=== PATIENT | female | born 2000 | race Caucasian/White ===

== ENCOUNTER 2022-03-01 22:02 | Emergency (ER) | payer OTHER ==
[2022-03-01 23:10] LABS: BASOPHILS % (AUTO) 0.4 %; EOSINOPHILS # (AUTO) 0.1 10^3/uL (0.0-0.7); EOSINOPHILS % (AUTO) 0.7 %; HCT - HEMATOCRIT 34.4 % (37.0-47.0); LYMPHOCYTES # (AUTO) 2.4 10^3/uL (1.5-3.5); LYMPHOCYTES % (AUTO) 28.9 %; MEAN CORPUSCULAR HEMOGLOBIN 32.5 pg (27.0-31.0); MEAN CORPUSCULAR HGB CONC 34.9 g/dL (32.0-36.0); MEAN CORPUSCULAR VOLUME 93.2 fL (81.0-99.0); MEAN PLATELET VOLUME 9.5 fL (7.9-10.8); MONOCYTES # (AUTO) 0.8 10^3/uL (0.0-1.0); MONOCYTES % (AUTO) 8.9 %; NEUTROPHILS # (AUTO) 5.1 10^3/uL (1.5-6.6); NEUTROPHILS % (AUTO) 60.9 %; PLT - PLATELET COUNT 308 10^3/uL (130-450); RED BLOOD COUNT 3.69 10^6/uL (4.20-5.40); RED CELL DISTRIBUTION WIDTH 12.3 % (12.0-15.0); WHITE BLOOD COUNT 8.4 x10^3/uL (4.8-10.8)
[2022-03-01 23:14] LABS: BILIRUBIN,URINE NEGATIVE (NEGATIVE); GLUCOSE, URINE (UA) NEGATIVE (NEGATIVE); KETONES,URINE (UA) NEGATIVE (NEGATIVE); LEUKOCYTE ESTERASE, URINE NEGATIVE (NEGATIVE); NITRITE,URINE POSITIVE (NEGATIVE); OCCULT BLOOD,URINE NEGATIVE (NEGATIVE); PH,URINE 6.5 PH (5.0-7.5); PROTEIN,URINE NEGATIVE (NEGATIVE); UROBILINOGEN,URINE 0.2 (NORMAL) E.U./dL (NORMAL)
[2022-03-01 23:16] LABS: CLARITY,URINE HAZY (CLEAR); HCG UR QUAL NEGATIVE
[2022-03-01] MEDS ORDERED: ONDANSETRON 4 MG/2 ML VIAL IVP STA (23:17)
[2022-03-01] MEDS ORDERED: MORPHINE 2 MG/ML CARPUJECT IVP STA (23:17)
[2022-03-01 23:19] LABS: ALBUMIN 4.4 g/dL (3.2-5.5); ALBUMIN/GLOBULIN RATIO 1.4 (1.0-2.2); BILIRUBIN,TOTAL 0.4 mg/dL (0.2-1.0); CALCIUM 9.7 mg/dL (8.5-10.3); CREATININE 0.9 mg/dL (0.4-1.0); POTASSIUM 3.6 mmol/L (3.5-5.0); TOTAL PROTEIN 7.5 g/dL (6.7-8.2)
[2022-03-01 23:22] LABS: RBC,URINE 0-5 /HPF (0-5); SQUAMOUS EPITHELIAL CELL,UR FEW Squamous (<= Few)
[2022-03-01 23:23] LABS: BACTERIA,URINE Many /HPF (None Seen)
[2022-03-02] MEDS ORDERED: cefTRIAXone 1 GM in SODIUM CHLORIDE 0.9% MINIBAG 100 ML IV STA (00:24)
[2022-03-02] MEDS ORDERED: cefTRIAXone 1 GM VIAL ONE (00:47)
--- NOTE | 2022-03-02 03:52 | ED Physician Documentation ---
PD HPI FEMALE - Stated complaint Stated Complaint: ABD PX - Chief complaint Chief Complaint: Abd Pain - Additional information Additional information: Patient is 22-year-old female presenting to the emergency department with pelvic pain. Reports vigorous intercourse earlier this evening. Since that time has had low pelvic pain. Reports similar episodes in the past but never this severe. Reports in the past she has been diagnosed with colitis after coming to the emergency department for evaluation. Denies any diagnosis of vaginismus. Reports that this does not occur with all vaginal intercourse or vaginal penetration. Denies any bleeding or discharge from the vagina. Does report has been feeling somewhat fatigued x1 day but denies any other specific symptoms. Review of Systems Ten Systems: 10 systems reviewed and negative Constitutional: denies: Fever Eyes: denies: Loss of vision Ears: denies: Loss of hearing Nose: denies: Rhinorrhea / runny nose Throat: denies: Dental pain / toothache Cardiac: denies: Chest pain / pressure GI: denies: Abdominal Pain : denies: Dysuria Skin: denies: Rash Musculoskeletal: denies: Neck pain PD PAST MEDICAL HISTORY - Past Medical History Past Medical History: Yes GI: Other Other Past Medical History: Colitis - Past Surgical History Past Surgical History: No - Present Medications Home Medications: Ambulatory Orders Medication Instructions Recorded Confirmed Dicyclomine [Bentyl] 20 mg PO QID #30 mg pe 03/02/22 cephALEXin [Keflex] 500 mg PO Q6H #28 mg pe 03/02/22 polyethylene glycoL 3350 [Miralax] 17 gm PO DAILY #238 gm 03/02/22 - Allergies Allergies/Adverse Reactions: Allergies Allergy/AdvReac Type Severity Reaction Status Date / Time No Known Drug Allergies Allergy Verified 03/01/22 22:11 - Social History Does the pt smoke?: No Smoking Status: Never smoker Does the pt drink ETOH?: Yes Does the pt have substance abuse?: No - Immunizations Immunizations are current?: Yes - POLST Patient has POLST: No PD ED PE NORMAL - Vitals Vital signs reviewed: Yes - General General: Alert and oriented X 3 - HEENT HEENT: Atraumatic - Neck Neck: Supple, no meningeal sign - Cardiac Cardiac: RRR - Respiratory Respiratory: No respiratory distress - Abdomen Abdomen: Normal bowel sounds, Soft, Non tender, No organomegaly - Female Female : Deferred - Rectal Rectal: Deferred - Derm Derm: Normal color - Extremities Extremities: No deformity Results - Vitals Vitals: Vital Signs - 24 hr 03/01/22 03/01/22 03/02/22 22:09 23:08 00:00 Temperature 36.6 C Heart Rate 98 81 80 Respiratory 17 16 Rate Blood Pressure 113/59 L 102/55 L O2 Saturation 98 98 99 03/02/22 03/02/22 01:00 02:30 Temperature Heart Rate 86 84 Respiratory 16 16 Rate Blood Pressure 98/54 L 98/59 L O2 Saturation 98 99 Oxygen O2 Source Room air - Labs Labs: Laboratory Tests 03/01/22 03/01/22 03/01/22 23:00 23:03 23:03 WBC 8.4 RBC 3.69 L Hgb 12.0 Hct 34.4 L MCV 93.2 MCH 32.5 H MCHC 34.9 RDW 12.3 Plt Count 308 MPV 9.5 Neut # (Auto) 5.1 Lymph # (Auto) 2.4 Delta # (Auto) 0.8 Eos # (Auto) 0.1 Baso # (Auto) 0.0 Absolute Nucleated RBC 0.00 Nucleated RBC % 0.0 Sodium 136 Potassium 3.6 Chloride 105 Carbon Dioxide 23 Anion Gap 8.0 BUN 16 Creatinine 0.9 Estimated GFR (MDRD) 79 L Glucose 108 H Calcium 9.7 Total Bilirubin 0.4 AST 16 ALT 17 Alkaline Phosphatase 56 Total Protein 7.5 Albumin 4.4 Globulin 3.1 Albumin/Globulin Ratio 1.4 Lipase 27 Urine Color YELLOW Urine Clarity HAZY Urine pH 6.5 Ur Specific [place] 1.020 Urine Protein NEGATIVE Urine Glucose (UA) NEGATIVE Urine Ketones NEGATIVE Urine Occult Blood NEGATIVE Urine Nitrite POSITIVE H Urine Bilirubin NEGATIVE Urine Urobilinogen 0.2 (NORMAL) Ur Leukocyte Esterase NEGATIVE Urine RBC 0-5 Urine WBC 4-5 Ur Squamous Epith Cells FEW Squamous Urine Bacteria Many H Ur Microscopic Review INDICATED Urine Culture Comments INDICATED Urine HCG, Qual NEGATIVE PD MEDICAL DECISION MAKING - ED course Complexity details: reviewed results, d/w patient ED course: Patient is 22-year-old female presenting to the emergency department with pelvic pain after intercourse earlier this evening. Denied any bleeding that would be of eminent concern for trauma to the intravaginal vault. Reported had similar symptoms to this in the past and in the past have been diagnosed with an atypical colitis. Afebrile, hemodynamically stable. Some suprapubic tenderness to palpation. Urine analysis positive for nitrates and +4 bacteria. Was given a gram Rocephin. Additionally given dose of morphine in the emergency department. CT of the abdomen pelvis with multiple nonspecific findings including some adenopathy possibly representing mesenteric adenitis as well as moderate fecalization throughout the distal part of the large bowel and a single identified dominant follicle. Overall however patient's lab work, imaging and presentation are relatively benign. I will discharge on a bowel regimen as well as a short course of an oral antibiotic for possible urinary tract infection. I encouraged abstinence from sexual activity until symptoms completely christina and careful follow-up with primary care. Departure - Departure Disposition: Home, Self Care Clinical Impression: Pelvic pain in female, Lower urinary tract infection, Constipation, Abdominal lymphadenopathy Instructions: ED Abdominal Pain Female Non-Specific Abdominal Pain Prescriptions: Dicyclomine [Bentyl] 20 mg PO QID #30 mg pe cephALEXin [Keflex] 500 mg PO Q6H #28 mg pe polyethylene glycoL 3350 [Miralax] 17 gm PO DAILY #238 gm Comments: Thank you for allowing us to care for you today At [facility]. In the emergency department this evening you were evaluated for any possible life-threatening medical emergency. You were found to have some indications of urinary tract infection and the CT of your abdomen and pelvis showed some swollen lymph nodes possibly representing an early, likely viral infection however there was no significant injury identified to the pelvic structures. I will be discharging you with a short course of some medication you can take for pain control as well as a course of oral antibiotic, and some medications to help as a bowel regimen. Please take these as directed. I recommend avoiding intercourse for the next 2 to 3 weeks. I also like you to follow-up with your primary care doctor soon as possible for medical recheck. If it anytime you have any new or worsening symptoms please not hesitate to return to the emergency department.
[2022-03-02] MEDS ORDERED: oxyCODONE/ACET 5/325 Prepack 4 PO STA (04:18)
[2022-03-02 04:59] VITALS: BP 104/63
--- NOTE | 2022-03-02 07:31 | CT Report ---
PROCEDURE: Abdomen/Pelvis W INDICATIONS: abd pain CONTRAST: IV CONTRAST: Optiray 320 ml: 100 PO CONTRAST: *NO PO CONTRAST TECHNIQUE: After the administration of intravenous contrast, 5 mm thick sections acquired from the diaphragms to the symphysis. 5 mm thick coronal and sagittal reformats were acquired. For radiation dose reducti on, the following was used: automated exposure control, adjustment of mA and/or kV according to izabella ent size. COMPARISON: None. FINDINGS: Image quality: Excellent. ABDOMEN: Lung bases: Lung bases are clear. Heart size is normal. Solid organs: Liver and spleen are normal in size and enhancement. Gallbladder is unremarkable Kwasi iary system is non dilated. Pancreas enhances normally. No adrenal nodules. Kidneys demonstrate no rmal size and enhancement, without hydronephrosis. Peritoneum and bowel: Bowel loops demonstrate normal wall thickness and caliber. No free fluid or a ir. Normal appendix. Large amount of right colonic fecal debris and equalization of distal ileal cont ents. Nodes and vessels: No retroperitoneal or mesenteric adenopathy by size criteria. Aorta and inferior vena cava are normal in size. Mildly prominent right lower quadrant mesenteric lymph nodes. Miscellaneous: No ventral hernias. PELVIS: Genitourinary: Bladder wall thickness is normal. Miscellaneous: No inguinal hernias or adenopathy. Peripherally enhancing 2.0 cm right ovarian cyst. Mild physiologic fluid in the pelvis. Bones: No suspicious bony lesions. No vertebral body compression fractures. IMPRESSION: 1. Normal appendix. 2. Symptomatology may potentially be related to a peripherally enhancing, normal-sized right ovarian cyst. 3. Constipation. 4. Mildly prominent right lower quadrant mesenteric lymph nodes are nonspecific findings. Question me senteric adenitis. Findings are concordant with preliminary interpretation provided by [facility]. Reviewed by: Bandar Lopez MD on 03/02/2022 6:29 AM [facility] Approved by: Bandar Lopez MD on 03/02/2022 6:29 AM [facility] Station ID: [id number]
== END 2022-03-02 04:34 | disposition home or self-care (01) ==
LOC: ED 22:02
DX: N39.0 Urinary tract infection, site not specified (principal); K59.00 Constipation, unspecified; R59.0 Localized enlarged lymph nodes
CPT/HCPCS: 36415; 74177; 80053; 81001; 81025; 83690; 85025; 87077; 87086; 87181; 96365; 96375; 99283; 99284; Q9967; 81003

== ENCOUNTER 2022-06-04 22:48 | Emergency (ER) | payer OTHER ==
[2022-06-04 23:12] VITALS: BP 131/72
[2022-06-04] MEDS ORDERED: DEXAMETHASONE 10 MG/ML VIAL PO STA (23:49)
[2022-06-04] MEDS ORDERED: CHERRY SYRUP 10 ML UDC PO ONE (23:49)
--- NOTE | 2022-06-04 23:53 | ED Physician Documentation ---
History of Present Illness - Stated complaint Stated Complaint: SINUS ON FIRE, EYE SWOLLEN - Chief complaint Chief Complaint: Heent - History obtained from History obtained from: Patient, Family (spouse) - Additonal information Additional information: 22yF, previously healthy, with allergies to milk and cats, p/w BL eye swelling over the past 1.5 hours as well as throat tightness, itchiness, and sinus pain/pressure. symptoms have improved with 50mg benadryl given at home but she still has some mild eye swelling. denies foreign body sensation. patient recently purchased a preowned couch and was on it today but does not know of any other allergen exposure. denies nausea, lightheadedness, rash. Review of Systems Ten Systems: 10 systems reviewed and negative Constitutional: reports: Other (itchiness) Eyes: reports: Irritation, Other (eye swelling) Nose: reports: Sinus pressure / pain Throat: reports: Other (throat tightness) PD PAST MEDICAL HISTORY - Past Medical History GI: Other - Past Surgical History Past Surgical History: No - Present Medications Home Medications: Ambulatory Orders Medication Instructions Recorded Confirmed Dicyclomine [Bentyl] 20 mg PO QID #30 mg pe 03/02/22 cephALEXin [Keflex] 500 mg PO Q6H #28 mg pe 03/02/22 polyethylene glycoL 3350 [Miralax] 17 gm PO DAILY #238 gm 03/02/22 - Allergies Allergies/Adverse Reactions: Allergies Allergy/AdvReac Type Severity Reaction Status Date / Time No Known Drug Allergies Allergy Verified 06/04/22 23:12 - Social History Does the pt smoke?: No Smoking Status: Never smoker Does the pt drink ETOH?: Yes Does the pt have substance abuse?: No - Immunizations Immunizations are current?: Yes - POLST Patient has POLST: No PD ED PE NORMAL - Vitals Vital signs reviewed: Yes - General General: Alert and oriented X 3, No acute distress, Well developed/nourished - HEENT HEENT: Atraumatic, PERRL, EOMI, Moist mucous membranes, Pharynx benign, Other (BL mild periorbital swelling) - Neck Neck: Supple, no meningeal sign - Cardiac Cardiac: RRR - Respiratory Respiratory: No respiratory distress, Clear bilaterally, Other (no wheezing or stridor) Results - Vitals Vitals: Vital Signs - 24 hr 06/04/22 23:09 Temperature 36.5 C Heart Rate 89 Respiratory 16 Rate Blood Pressure 131/72 H O2 Saturation 100 Oxygen O2 Source Room air PD MEDICAL DECISION MAKING - ED course ED course: 22-year-old woman presented with local allergic reaction, possibly to animal dander on a new pre-owned couch. She appears to have improved status post 50 mg Benadryl administered at home. decadron administered and return precautions given. f/u with pcp Departure - Departure Disposition: Home, Self Care Clinical Impression: Allergic reaction Condition: Good Instructions: First Aid Allergic React Comments: You were seen in the emergency department for allergic reaction. 10 mg of Decadron, a steroid medicine were given to help treat the reaction. Please return to the emergency department if you have any of the signs and symptoms that we discussed or if you have other concerns. Follow up with your primary care provider.
== END 2022-06-05 00:06 | disposition home or self-care (01) ==
LOC: ED 22:48
DX: T78.40XA Allergy, unspecified, initial encounter (principal)
CPT/HCPCS: 99282; A9270

== ENCOUNTER 2022-07-14 21:06 | Emergency (ER) | payer OTHER ==
--- NOTE | 2022-07-14 23:16 | XRAY Report ---
PROCEDURE: Chest 2 View X-Ray INDICATIONS: cough TECHNIQUE: 2 views of the chest were acquired. COMPARISON: None. FINDINGS: Surgical changes and devices: None. Lungs and pleura: No pleural effusions or pneumothorax. Lungs are clear. Mediastinum: Mediastinal contours are normal. Heart size is normal. Bones and chest wall: No suspicious bony abnormalities. Soft tissues appear unremarkable. IMPRESSION: 1. No acute cardiopulmonary disease. Reviewed by: Cameron Broderick MD on 07/14/2022 11:15 PM [facility] Approved by: Cameron Broderick MD on 07/14/2022 11:15 PM [facility] Station ID: [id number]
[2022-07-14] MEDS ORDERED: ACETAMINOPHEN 325 MG TABLET PO STA (23:43)
[2022-07-14] MEDS ORDERED: IBUPROFEN 600 MG TABLET PO STA (23:43)
[2022-07-14 23:51] LABS: CORONAVIRUS 229E-RESP PCR NOT DETECTED; CORONAVIRUS HKU1-RESP PCR NOT DETECTED; CORONAVIRUS NL63-RESP PCR NOT DETECTED; CORONAVIRUS OC43-RESP PCR NOT DETECTED
[2022-07-14 23:52] LABS: B. PARAPERTUSSIS- RESP PCR PAN NOT DETECTED; B. PERTUSSIS- RESP PCR PANEL NOT DETECTED; C. PNEUMONIAE- RESP PCR PANEL NOT DETECTED; HUMAN METAPNEUMOVIRUS NOT DETECTED; INFLUENZA A- RESP PCR PANEL NOT DETECTED; INFLUENZA B - RESP PCR PANEL NOT DETECTED; M. PNEUMONIAE- RESP PCR PANEL NOT DETECTED; PARAINFLUENZA VIRUS 1 NOT DETECTED; PARAINFLUENZA VIRUS 2 NOT DETECTED; PARAINFLUENZA VIRUS 3 NOT DETECTED; PARAINFLUENZA VIRUS 4 NOT DETECTED; RHINOVIRUS/ENTEROVIRUS NOT DETECTED; RSV- RESP PCR PANEL NOT DETECTED; SARS-CoV-2 -RESP PCR PANEL DETECTED
--- NOTE | 2022-07-15 00:14 | ED Physician Documentation ---
History of Present Illness - Stated complaint Stated Complaint: CHEST PX/BODY ACHES - Chief complaint Chief Complaint: General - History obtained from History obtained from: Patient - Additonal information Additional information: The patient comes to the emergency department chief complaint of body aches, fevers, sore throat, rhinorrhea, and cough for about the last 3 days. She has not been exposed to anybody who has been specifically ill with anything that she knows of. The patient denies any dysuria. She has had some back pain that starts around her sacral area and shoots up. Patient states whenever that happens, she also gets a chill. She is been nauseated and vomited a couple of times, but has been able to hold water down. She denies any other complaints at this time. Review of Systems Ten Systems: 10 systems reviewed and negative Constitutional: reports: Fever, Chills, Myalgias Eyes: reports: Reviewed and negative Ears: reports: Reviewed and negative Nose: reports: Rhinorrhea / runny nose, Congestion Throat: reports: Sore throat Cardiac: reports: Reviewed and negative Respiratory: reports: Cough. denies: Dyspnea GI: reports: Nausea, Vomiting : reports: Reviewed and negative. denies: Dysuria, Frequency Skin: reports: Reviewed and negative Musculoskeletal: reports: Back pain Neurologic: reports: Reviewed and negative Psychiatric: reports: Reviewed and negative Endocrine: reports: Reviewed and negative Immunocompromised: reports: Reviewed and negative PD PAST MEDICAL HISTORY - Past Medical History GI: Other - Past Surgical History Past Surgical History: No - Present Medications Home Medications: Ambulatory Orders Medication Instructions Recorded Confirmed No Known Home Medications 07/14/22 07/14/22 - Allergies Allergies/Adverse Reactions: Allergies Allergy/AdvReac Type Severity Reaction Status Date / Time No Known Drug Allergies Allergy Verified 07/14/22 21:20 - Social History Does the pt smoke?: No Smoking Status: Never smoker Does the pt drink ETOH?: Yes Does the pt have substance abuse?: No - Immunizations Immunizations are current?: Yes - POLST Patient has POLST: No PD ED PE NORMAL - Vitals Vital signs reviewed: Yes - General General: Alert and oriented X 3, No acute distress, Well developed/nourished - HEENT HEENT: Atraumatic, PERRL, EOMI, Moist mucous membranes - Neck Neck: Supple, no meningeal sign - Cardiac Cardiac: No murmur, Strong equal pulses, Other (Sore rest tachycardic rate regular rhythm, ) - Respiratory Respiratory: No respiratory distress, Clear bilaterally - Abdomen Abdomen: Soft, Non distended, Other (Mild bilateral lower quadrant tenderness, no rebound or guarding.) - Derm Derm: Normal color, Warm and dry, No rash - Extremities Extremities: No deformity, No edema - Neuro Neuro: Alert and oriented X 3 - Psych Psych: Normal mood, Normal affect Results - Vitals Vitals: Vital Signs - 24 hr 07/14/22 21:14 Temperature 38.3 C H Heart Rate 128 H Respiratory 20 Rate Blood Pressure 126/80 O2 Saturation 98 Oxygen O2 Source Room air - Labs Labs: Laboratory Tests 07/14/22 22:52 Nasal Adenovirus (PCR) NOT DETECTED Nasal B. parapertussis DNA (PCR) NOT DETECTED Nasal Coronavir 229E PCR NOT DETECTED Nasal Coronavir HKU1 PCR NOT DETECTED Nasal Coronavir NL63 PCR NOT DETECTED Nasal Coronavir OC43 PCR NOT DETECTED Nasal Enterovir/Rhinovir PCR NOT DETECTED Nasal Influenza B PCR NOT DETECTED Nasal Influenza A PCR NOT DETECTED Nasal Parainfluen 1 PCR NOT DETECTED Nasal Parainfluen 2 PCR NOT DETECTED Nasal Parainfluen 3 PCR NOT DETECTED Nasal Parainfluen 4 PCR NOT DETECTED Nasal RSV (PCR) NOT DETECTED Nasal B.pertussis DNA PCR NOT DETECTED Nasal C.pneumoniae (PCR) NOT DETECTED Ed Human Metapneumo PCR NOT DETECTED Nasal M.pneumoniae (PCR) NOT DETECTED Nasal SARS-CoV-2 (PCR) DETECTED A PD MEDICAL DECISION MAKING - ED course Complexity details: reviewed results, re-evaluated patient, considered differential, d/w patient, d/w family ED course: The patient was febrile in the emergency department and was given ibuprofen and Tylenol for this. Her blood pressure was normal and the patient overall looked mildly ill but nontoxic. Her PCR panel was positive for COVID. I discussed this with the patient and her . We have discussed the expected timeline for symptoms and the resolution, as well as the usual indications for return. We have discussed symptomatic management at home. Departure - Departure Disposition: 01 Home, Self Care Clinical Impression: COVID-19 Condition: Stable Instructions: ED Viral Syndrome Comments: Your respiratory panel is positive for COVID. This and the fever that you have tonight would explain the symptoms you are having. You should take Tylenol 650 mg every 4 hours and ibuprofen 600 mg every 6 hours during waking hours for the next few days. This will help to keep your fever down and prevent some of the aches and other discomforts you are having. It will also make you more tolerant of fluids and keep your nausea from flaring up. The symptoms of illness often last 1 to 2 weeks, though sometimes less. You should stay home until your symptoms are noticeably improving.
[2022-07-15 00:18] VITALS: BP 120/76
== END 2022-07-15 00:22 | disposition home or self-care (01) ==
LOC: ED 21:06
DX: U07.1 COVID-19 (principal)
CPT/HCPCS: 71046; 87633; 93005; 99282; 99284; A9270

== ENCOUNTER 2022-08-18 10:04 | Emergency (ER) | payer OTHER ==
[2022-08-18 10:38] LABS: BASOPHILS % (AUTO) 0.3 %; EOSINOPHILS # (AUTO) 0.1 10^3/uL (0.0-0.7); EOSINOPHILS % (AUTO) 1.2 %; HCT - HEMATOCRIT 38.3 % (37.0-47.0); LYMPHOCYTES # (AUTO) 1.7 10^3/uL (1.5-3.5); LYMPHOCYTES % (AUTO) 29.7 %; MEAN CORPUSCULAR HEMOGLOBIN 31.9 pg (27.0-31.0); MEAN CORPUSCULAR HGB CONC 33.9 g/dL (32.0-36.0); MEAN CORPUSCULAR VOLUME 93.9 fL (81.0-99.0); MEAN PLATELET VOLUME 8.8 fL (7.9-10.8); MONOCYTES # (AUTO) 0.4 10^3/uL (0.0-1.0); NEUTROPHILS # (AUTO) 3.5 10^3/uL (1.5-6.6); NEUTROPHILS % (AUTO) 61.6 %; PLT - PLATELET COUNT 298 10^3/uL (130-450); RED BLOOD COUNT 4.08 10^6/uL (4.20-5.40); RED CELL DISTRIBUTION WIDTH 12.2 % (12.0-15.0); WHITE BLOOD COUNT 5.8 x10^3/uL (4.8-10.8)
[2022-08-18 10:50] LABS: ALBUMIN 4.5 g/dL (3.2-5.5); ALBUMIN/GLOBULIN RATIO 1.3 (1.0-2.2); BILIRUBIN,TOTAL 0.9 mg/dL (0.2-1.0); CALCIUM 9.3 mg/dL (8.5-10.3); CREATININE 0.8 mg/dL (0.4-1.0); POTASSIUM 3.9 mmol/L (3.5-5.0); TOTAL PROTEIN 7.9 g/dL (6.7-8.2)
[2022-08-18 11:10] LABS: BILIRUBIN,URINE NEGATIVE (NEGATIVE); GLUCOSE, URINE (UA) NEGATIVE (NEGATIVE); KETONES,URINE (UA) NEGATIVE (NEGATIVE); LEUKOCYTE ESTERASE, URINE NEGATIVE (NEGATIVE); NITRITE,URINE NEGATIVE (NEGATIVE); OCCULT BLOOD,URINE NEGATIVE (NEGATIVE); PH,URINE 6.5 PH (5.0-7.5); PROTEIN,URINE NEGATIVE (NEGATIVE); UROBILINOGEN,URINE 0.2 (NORMAL) E.U./dL (NORMAL)
[2022-08-18 11:13] LABS: CLARITY,URINE CLEAR (CLEAR); HCG UR QUAL NEGATIVE
--- NOTE | 2022-08-18 12:05 | ED Physician Documentation ---
History of Present Illness - Stated complaint Stated Complaint: FEMALE - Chief complaint Chief Complaint: Abd Pain - History obtained from History obtained from: Patient - History of Present Illness Timing: How many days ago (3-4) Pain level max: 4 Pain level now: 4 - Additonal information Additional information: Patient is a 22-year-old female who presents to the emergency department complaining of diffuse abdominal pain, cramping, intermittent diarrhea and constipation. Occasional bright red blood in the stool. She states that this is been ongoing for several years, she has been to multiple ERs without confirmed diagnosis. She has never followed up with her primary care provider or a GI specialist regarding this. She does not know if there is inflammatory bowel disease in her family. She has never had a colonoscopy. No fevers. No recent travel. [place] from [place] Review of Systems Constitutional: denies: Fever, Chills Respiratory: denies: Cough GI: reports: Constipation, Diarrhea, Bloody / black stool (bright red, not black). denies: Vomiting : denies: Dysuria, Frequency, Hesitancy, Now EGA Skin: denies: Rash Musculoskeletal: denies: Neck pain, Back pain PD PAST MEDICAL HISTORY - Past Medical History Past Medical History: No GI: Other Psych: Anxiety - Past Surgical History Past Surgical History: No - Present Medications Home Medications: Ambulatory Orders Medication Instructions Recorded Confirmed Dicyclomine [Bentyl] 10 mg PO QID PRN #30 cap 08/18/22 polyethylene glycoL 3350 [Miralax] 17 gm PO DAILY PRN #1 each 08/18/22 predniSONE [Deltasone] 10 mg PO [id number] #42 tab 08/18/22 - Allergies Allergies/Adverse Reactions: Allergies Allergy/AdvReac Type Severity Reaction Status Date / Time No Known Drug Allergies Allergy Verified 08/18/22 10:18 - Living Situation Living Situation: reports: With family Living Arrangement: reports: At home - Social History Does the pt smoke?: No Smoking Status: Never smoker Does the pt drink ETOH?: Yes Does the pt have substance abuse?: No - Family History Family history: reports: Non contributory - Immunizations Immunizations are current?: Yes - POLST Patient has POLST: No PD ED PE NORMAL - Vitals Vital signs reviewed: Yes - General General: Alert and oriented X 3, No acute distress - HEENT HEENT: Moist mucous membranes, Pharynx benign - Neck Neck: Supple, no meningeal sign - Cardiac Cardiac: RRR, Strong equal pulses - Respiratory Respiratory: No respiratory distress, Clear bilaterally - Abdomen Abdomen: Soft, Non distended, Other (mild diffuse TTP, no peritoneal signs) - Derm Derm: Warm and dry, No rash - Extremities Extremities: No edema, No calf tenderness / cord - Neuro Neuro: Alert and oriented X 3 - Psych Psych: Normal mood, Normal affect Results - Vitals Vitals: Vital Signs - 24 hr 08/18/22 08/18/22 08/18/22 10:13 10:18 12:23 Temperature 36.9 C 36.9 C Heart Rate 78 78 74 Respiratory 16 16 18 Rate Blood Pressure 117/64 117/64 112/62 O2 Saturation 100 100 96 08/18/22 14:00 Temperature Heart Rate 64 Respiratory 16 Rate Blood Pressure 109/61 O2 Saturation 96 Oxygen O2 Source Room air - Labs Labs: Laboratory Tests 08/18/22 08/18/22 08/18/22 10:28 10:34 10:34 WBC 5.8 RBC 4.08 L Hgb 13.0 Hct 38.3 MCV 93.9 MCH 31.9 H MCHC 33.9 RDW 12.2 Plt Count 298 MPV 8.8 Neut # (Auto) 3.5 Lymph # (Auto) 1.7 [place] # (Auto) 0.4 Eos # (Auto) 0.1 Baso # (Auto) 0.0 Absolute Nucleated RBC 0.00 Nucleated RBC % 0.0 Sodium 134 L Potassium 3.9 Chloride 102 Carbon Dioxide 22 Anion Gap 10.0 BUN 11 Creatinine 0.8 Estimated GFR (MDRD) 91 Glucose 92 Calcium 9.3 Total Bilirubin 0.9 AST 21 ALT 15 Alkaline Phosphatase 54 Total Protein 7.9 Albumin 4.5 Globulin 3.4 Albumin/Globulin Ratio 1.3 Lipase 27 Urine Color YELLOW Urine Clarity CLEAR Urine pH 6.5 Ur Specific [place] 1.020 Urine Protein NEGATIVE Urine Glucose (UA) NEGATIVE Urine Ketones NEGATIVE Urine Occult Blood NEGATIVE Urine Nitrite NEGATIVE Urine Bilirubin NEGATIVE Urine Urobilinogen 0.2 (NORMAL) Ur Leukocyte Esterase NEGATIVE Ur Microscopic Review NOT INDICATED Urine Culture Comments NOT INDICATED Urine HCG, Qual NEGATIVE - Rads (name of study) Ct abd/pelvis Radiology: Final report received, See rad report PD Medical Decision Making - ED course Complexity details: reviewed results, re-evaluated patient, considered differential, d/w patient ED course: CBC, ER abdominal panel and urinalysis do not show any significant abnormalities. She is not anemic. CT scan does not show any acute a bnormalities but does show constipation. Patient's history sounds more consistent with an ongoing GI issue, possible IBS versus IBD. No indication for antibiotics. She would like to try a short course of steroids to see if this helps. Recommend that she follow-up with her doctor for further care and a referral to GI for likely colonoscopy. We will also place the patient on Bentyl for cramping. Patient is very well-appearing, nontoxic. Afebrile. Tolerating p.o. without difficulty. Patient counseled regarding signs and symptoms for which I believe and urgent re-evaluation would be necessary. Patient with good understanding of and agreement to plan and is comfortable going home at this time This document was made in part using voice recognition software. While efforts are made to proofread this document, sound alike and grammatical errors may occur. Departure - Departure Disposition: 01 Home, Self Care Clinical Impression: Hematochezia Abdominal pain Qualifiers: Abdominal location: unspecified location Qualified Code(s): R10.9 - Unspecified abdominal pain Constipation Qualifiers: Constipation type: unspecified constipation type Qualified Code(s): K59.00 - Constipation, unspecified Condition: Good Instructions: IBS, IBS Diet Lifestyle, Disease Crohn Dc, ED Abdominal Pain Fem yon Non-Specific Abdominal Pain, ED Colitis Ulcerative Follow-Up: LENNOX BRAGA MD [Physician No Access] - Within 1 week Nakul Mooeny MD [Provider Admit Priv/Credential] - [facility] [Provider Group] [facility] [Provider Group] Prescriptions: Dicyclomine [Bentyl] 10 mg PO QID PRN #30 cap PRN Reason: Abdominal Pain predniSONE [Deltasone] 10 mg PO [id number] #42 tab polyethylene glycoL 3350 [Miralax] 17 gm PO DAILY PRN #1 each PRN Reason: Constipation Comments: The cause of your symptoms is unclear. Your CT scan does show constipation and we will treat you for this. Your symptoms sound consistent with either irritable bowel syndrome or an inflammatory bowel disease such as ulcerative colitis or Crohn's. It is recommended that you follow-up with your PCM for further care and receive a referral to GI for further care. You should have a colonoscopy to further evaluate your symptoms as well. Please return if you worsen. Your prescriptions were sent to [facility] in [place]. Discharge Date/Time: 08/18/22 14:35
[2022-08-18] MEDS ORDERED: iohexoL-300 100 ML VIAL ONE (12:37)
[2022-08-18] MEDS ORDERED: iohexoL-300 100 ML VIAL IVP ONE (14:00)
[2022-08-18 14:08] VITALS: BP 109/61
--- NOTE | 2022-08-18 14:09 | CT Report ---
PROCEDURE: ABDOMEN/PELVIS W INDICATIONS: diffuse abd pain, blood in stool CONTRAST: 100ml Omnipaque 300 TECHNIQUE: After the administration of intravenous contrast, 5 mm thick sections acquired from the diaphragms to the symphysis. 5 mm thick coronal and sagittal reformats were acquired. For radiation dose reducti on, the following was used: automated exposure control, adjustment of mA and/or kV according to izabella ent size. COMPARISON: 03/02/2022 FINDINGS: Image quality: Excellent. ABDOMEN: Lung bases: Lung bases are clear. Heart size is normal. Solid organs: Liver and spleen are normal in size and enhancement. Gallbladder is unremarkable with out calcified gallstones. Biliary system is non dilated. Pancreas enhances normally. No adrenal no dules. Kidneys demonstrate normal size and enhancement, without hydronephrosis. Peritoneum and bowel: Bowel loops demonstrate normal wall thickness and caliber. No free fluid or a ir. Moderately large amount of fecal debris in the right colon and transverse colon. Nodes and vessels: No retroperitoneal or mesenteric adenopathy by size criteria. Aorta and inferior vena cava are normal in size. Miscellaneous: No ventral hernias. PELVIS: Genitourinary: Bladder wall thickness is normal. Miscellaneous: No inguinal hernias or adenopathy. Bones: No suspicious bony lesions. No vertebral body compression fractures. IMPRESSION: 1. Moderately large fecal debris in the right colon and transverse colon. 2. Otherwise unremarkable appearance of bowel. 3. No evidence of acute abdominal process. Reviewed by: Bandar Lopez MD on 08/18/2022 2:07 PM PST Approved by: Bandar Lopez MD on 08/18/2022 2:07 PM PST Station ID: [id number]
== END 2022-08-18 14:35 | disposition home or self-care (01) ==
LOC: ED 10:04
DX: K92.1 Melena (principal); K59.00 Constipation, unspecified; R10.9 Unspecified abdominal pain
CPT/HCPCS: 36415; 74177; 80053; 81003; 81025; 83690; 85025; 99283; 99284; Q9967; 81001; 87086

== ENCOUNTER 2023-01-24 21:35 | Emergency (ER) | payer OTHER ==
[2023-01-24 22:38] LABS: BILIRUBIN,URINE NEGATIVE (NEGATIVE); GLUCOSE, URINE (UA) NEGATIVE (NEGATIVE); KETONES,URINE (UA) NEGATIVE (NEGATIVE); LEUKOCYTE ESTERASE, URINE NEGATIVE (NEGATIVE); NITRITE,URINE NEGATIVE (NEGATIVE); OCCULT BLOOD,URINE NEGATIVE (NEGATIVE); PROTEIN,URINE NEGATIVE (NEGATIVE); UROBILINOGEN,URINE 0.2 (NORMAL) E.U./dL (NORMAL)
[2023-01-24 22:41] LABS: CLARITY,URINE CLEAR (CLEAR); HCG UR QUAL NEGATIVE
[2023-01-24] MEDS ORDERED: SODIUM CHLORIDE 0.9% 1,000 ML IV STA (23:18)
[2023-01-25 00:13] LABS: BASOPHILS % (AUTO) 0.4 %; EOSINOPHILS # (AUTO) 0.2 10^3/uL (0.0-0.7); EOSINOPHILS % (AUTO) 2.8 %; HCT - HEMATOCRIT 34.9 % (37.0-47.0); HGB - HEMOGLOBIN 12.1 g/dL (12.0-16.0); LYMPHOCYTES # (AUTO) 2.5 10^3/uL (1.5-3.5); LYMPHOCYTES % (AUTO) 35.4 %; MEAN CORPUSCULAR HEMOGLOBIN 32.7 pg (27.0-31.0); MEAN CORPUSCULAR HGB CONC 34.7 g/dL (32.0-36.0); MEAN CORPUSCULAR VOLUME 94.3 fL (81.0-99.0); MEAN PLATELET VOLUME 9.2 fL (7.9-10.8); MONOCYTES # (AUTO) 0.6 10^3/uL (0.0-1.0); MONOCYTES % (AUTO) 8.9 %; NEUTROPHILS # (AUTO) 3.7 10^3/uL (1.5-6.6); NEUTROPHILS % (AUTO) 52.4 %; PLT - PLATELET COUNT 307 10^3/uL (130-450); WHITE BLOOD COUNT 7.1 x10^3/uL (4.8-10.8)
[2023-01-25 00:20] LABS: ALBUMIN 3.9 g/dL (3.2-5.5); BILIRUBIN,TOTAL 0.3 mg/dL (0.2-1.0); CREATININE 0.7 mg/dL (0.4-1.0); POTASSIUM 3.5 mmol/L (3.5-5.0); TOTAL PROTEIN 7.8 g/dL (6.7-8.2)
--- NOTE | 2023-01-25 01:33 | CT Report ---
PROCEDURE: CT brain without contrast INDICATIONS: headache after intercourse TECHNIQUE: Noncontrast 4.5 mm thick angled axial sections acquired from the foramen magnum to the vertex. For r adiation dose reduction, the following was used: automated exposure control, adjustment of mA and/or kV according to patient size. COMPARISON: None. FINDINGS: Image quality: Excellent. CSF spaces: Basal cisterns are patent. No extra-axial fluid collections. Ventricles are normal in size and shape. Brain: No midline shift. No intracranial masses or hemorrhage. Hassan-white matter interface is norm al. Skull and face: Calvarium and visualized facial bones are intact, without suspicious lesions. Sinuses: Visualized sinuses and mastoids are clear. IMPRESSION: Normal CT of the brain Reviewed by: Reji Vasquez MD on 01/25/2023 12:32 AM JACE Approved by: Reji Vasquez MD on 01/25/2023 12:32 AM JACE Station ID: [id number]
--- NOTE | 2023-01-25 02:22 | ED Physician Documentation ---
History of Present Illness - Stated complaint Stated Complaint: WEAKNESS - Chief complaint Chief Complaint: General - History obtained from History obtained from: Patient - Additonal information Additional information: Patient is a 22-year-old female presenting for evaluation of feeling dizzy and weak after having intercourse this evening around 8:00. Patient reports having numbness to bilateral sides of her face. Patient reports she was feeling heavy all over. She states that she has had similar feelings of heaviness and numbness and tingling in the past with intercourse or when having anxiety. She does report having a slight frontal headache. She denies that this is the worst headache she has ever had. She describes it as a sharp sensation. Nothing makes it better or worse. No neck pain. She reported that the numbness and tingling in her face spread to all over her body. She denies any focal weakness. She does not take a blood thinner. Review of Systems Constitutional: denies: Fever Cardiac: denies: Chest pain / pressure Respiratory: denies: Dyspnea GI: denies: Abdominal Pain Musculoskeletal: denies: Neck pain Neurologic: reports: Headache PD PAST MEDICAL HISTORY - Past Medical History GI: Other Psych: Anxiety - Past Surgical History Past Surgical History: No - Present Medications Home Medications: Ambulatory Orders Medication Instructions Recorded Confirmed Dicyclomine [Bentyl] 10 mg PO QID PRN #30 cap 08/18/22 polyethylene glycoL 3350(BULK) 17 gm PO DAILY PRN #1 each 08/18/22 [Miralax] predniSONE [Deltasone] 10 mg PO [id number] #42 tab 08/18/22 - Allergies Allergies/Adverse Reactions: Allergies Allergy/AdvReac Type Severity Reaction Status Date / Time No Known Drug Allergies Allergy Verified 01/24/23 21:56 - Social History Does the pt smoke?: No Smoking Status: Never smoker Does the pt drink ETOH?: Yes Does the pt have substance abuse?: No - Immunizations Immunizations are current?: Yes - POLST Patient has POLST: No PD ED PE NORMAL - General General: Alert and oriented X 3, No acute distress, Well developed/nourished - HEENT HEENT: Atraumatic, PERRL, EOMI, Moist mucous membranes, Pharynx benign - Neck Neck: Supple, no meningeal sign, No bony TTP - Cardiac Cardiac: RRR, No murmur, Strong equal pulses - Respiratory Respiratory: No respiratory distress, Clear bilaterally - Abdomen Abdomen: Soft, Non tender - Derm Derm: Warm and dry - Extremities Extremities: No edema - Neuro Neuro: Alert and oriented X 3, 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 Relevant findings are: Rate 75, normal sinus rhythm, no STEMI, QTc 447 Rate: Rate (enter#) (75) Rhythm: NSR Intervals: No: Prolonged QT Ischemia: No: ST elevation c/w ischemia Compare to prior EKG: Old EKG unavailable - Labs Labs: Laboratory Tests 01/24/23 01/24/23 01/25/23 21:58 22:29 00:00 WBC 7.1 RBC 3.70 L Hgb 12.1 Hct 34.9 L MCV 94.3 MCH 32.7 H MCHC 34.7 RDW 12.0 Plt Count 307 MPV 9.2 Neut # (Auto) 3.7 Lymph # (Auto) 2.5 [place] # (Auto) 0.6 Eos # (Auto) 0.2 Baso # (Auto) 0.0 Absolute Nucleated RBC 0.00 Nucleated RBC % 0.0 Sodium Potassium Chloride Carbon Dioxide Anion Gap BUN Creatinine Estimated GFR (MDRD) Glucose POC Whole Bld Glucose 111 H Calcium Total Bilirubin AST ALT Alkaline Phosphatase Total Protein Albumin Globulin Albumin/Globulin Ratio Urine Color YELLOW Urine Clarity CLEAR Urine pH 7.0 Ur Specific [place] 1.015 Urine Protein NEGATIVE Urine Glucose (UA) NEGATIVE Urine Ketones NEGATIVE Urine Occult Blood NEGATIVE Urine Nitrite NEGATIVE Urine Bilirubin NEGATIVE Urine Urobilinogen 0.2 (NORMAL) Ur Leukocyte Esterase NEGATIVE Ur Microscopic Review NOT INDICATED Urine Culture Comments NOT INDICATED Urine HCG, Qual NEGATIVE 01/25/23 00:00 WBC RBC Hgb Hct MCV MCH MCHC RDW Plt Count MPV Neut # (Auto) Lymph # (Auto) [place] # (Auto) Eos # (Auto) Baso # (Auto) Absolute Nucleated RBC Nucleated RBC % Sodium 140 Potassium 3.5 Chloride 108 Carbon Dioxide 26 Anion Gap 6.0 BUN 14 Creatinine 0.7 Estimated GFR (MDRD) 106 Glucose 100 POC Whole Bld Glucose Calcium 9.0 Total Bilirubin 0.3 AST 19 ALT 17 Alkaline Phosphatase 63 Total Protein 7.8 Albumin 3.9 Globulin 3.9 Albumin/Globulin Ratio 1.0 Urine Color Urine Clarity Urine pH Ur Specific [place] Urine Protein Urine Glucose (UA) Urine Ketones Urine Occult Blood Urine Nitrite Urine Bilirubin Urine Urobilinogen Ur Leukocyte Esterase Ur Microscopic Review Urine Culture Comments Urine HCG, Qual PD Medical Decision Making - ED course Complexity details: reviewed results, re-evaluated patient, d/w patient ED course: Patient presenting for evaluation of having bilateral numbness and tingling to her face, weakness and feeling lightheaded after intercourse. She does report having a mild frontal headache. Her exam does not suggest a subarachnoid hemorrhage but as she reported her symptoms starting after intercourse a head CT was obtained. Head CT is negative for signs of a bleed. She has a normal neuro exam and no signs of meningismus. Labs including CBC, chemistries and urinalysis were reviewed without significant findings. Patient is feeling better here with IV fluids and her symptoms have resolved. She has no known risk factors for stroke and her exam also does not suggest a stroke.Patient counseled on need for close follow-up with PCP as well as concerning symptoms to return for. Departure - Departure Disposition: 01 Home, Self Care Clinical Impression: Headache, Numbness and tingling Condition: Stable Instructions: ED Cephalgia Unspecified Comments: Your lab tests and CT scan of your brain at this time do not show any abnormalities. The exact cause for your symptoms is unclear. Therefore I would recommend close follow-up with your primary care provider. If at anytime you develop any worsening symptoms such as a worsening headache, weakness on one side or have any new concerns please return to the emergency department. Discharge Date/Time: 01/25/23 02:33
[2023-01-25 02:29] VITALS: BP 112/60
== END 2023-01-25 02:33 | disposition home or self-care (01) ==
LOC: ED 21:35
DX: R51.9 Headache, unspecified (principal); R20.0 Anesthesia of skin; R20.2 Paresthesia of skin
CPT/HCPCS: 36415; 80053; 81001; 81003; 81025; 85025; 87086; 93005; 99283; 99284

== ENCOUNTER 2023-10-26 18:45 | Outpatient (CLI) | payer OTHER ==
[2023-10-26 19:32] VITALS: BP 112/61
[2023-10-26 19:55] LABS: BASOPHILS % (AUTO) 0.2 %; EOSINOPHILS # (AUTO) 0.1 10^3/uL (0.0-0.7); EOSINOPHILS % (AUTO) 0.8 %; HCT - HEMATOCRIT 27.6 % (37.0-47.0); HGB - HEMOGLOBIN 9.2 g/dL (12.0-16.0); LYMPHOCYTES # (AUTO) 1.7 10^3/uL (1.5-3.5); MEAN CORPUSCULAR HEMOGLOBIN 33.1 pg (27.0-31.0); MEAN CORPUSCULAR HGB CONC 33.3 g/dL (32.0-36.0); MEAN CORPUSCULAR VOLUME 99.3 fL (81.0-99.0); MEAN PLATELET VOLUME 8.8 fL (7.9-10.8); MONOCYTES # (AUTO) 0.9 10^3/uL (0.0-1.0); MONOCYTES % (AUTO) 9.9 %; NEUTROPHILS # (AUTO) 6.4 10^3/uL (1.5-6.6); NEUTROPHILS % (AUTO) 69.3 %; PLT - PLATELET COUNT 283 10^3/uL (130-450); RED BLOOD COUNT 2.78 10^6/uL (4.20-5.40); RED CELL DISTRIBUTION WIDTH 13.2 % (12.0-15.0); WHITE BLOOD COUNT 9.2 x10^3/uL (4.8-10.8)
--- NOTE | 2023-10-27 11:14 | PROVIDER PROGRESS NOTE ---
- HPI Chief Complaint: Other Current : Current EDU 12/26/23 Gestation 31 Weeks and 2 Days 1 Para 0 Vital Signs Temperature 37.6 C 10/26/23 19:10 Heart Rate 102 H 10/26/23 19:10 Respiratory Rate 18 10/26/23 19:10 Blood Pressure 112/61 10/26/23 19:10 Temperature 37.6 C 10/26/23 20:40 Heart Rate 98 10/26/23 20:40 Respiratory Rate 18 10/26/23 20:40 Blood Pressure 112/61 10/26/23 20:40 O2 Saturation If not protocol: Oxygen Flow, liters/minute - Procedures OB Procedure Performed: NST Diagnosis/Indication for NST: Other NST Procedure: NST Procedure Start Date 10/26/23 Start Time 19:15 Stop Time 19:40 Vibroacoustic Stimulation Used No Patient States Movement Yes: Pt presents with dizziness and facial numbness - Plan Plan: Magdalene is a 23yo @ 31.2wks gestation by LMP c/w 8wk U/S who presents with her Skinny to [facility] with c/o dizziness and facial tingling. She reports she has experienced intermittent dizziness for the past several weeks but feels it has been getting progressively worse and she felt most concerned today by the addition of facial tingling. She denies visual disturbances. She reports she feels adequately hydrated and routinely consumes close to a gallon of water daily. She reports a regular healthy diet and has consistently eaten throughout the day today. She denies urinary symptoms and reports regular bowel movements. She denies fever, body aches or chills. Her reports recent viral illness with symptoms of cough and congestion last week. She currently denies cough or congestion. She does feel fever fatigued. She denies SOB or chest pain. She reports her has been complicated only by mild anemia for which she is currently taking oral iron supplement once daily and has been consistently taking for the past 2 weeks. She denies vaginal bleeding, leakage of fluid or contractions. She reports +FM. O: NST reactive. FHR baseline 140s, moderate variability, + accels, no decels No contractions appreciated via tocometry All vital signs WNL. Heart RRR w/o M/G/R, lungs CTAB, abdomen gravid, soft, nontender, bilateral LE's no edema. Bilateral cervical lymphadenopathy noted and slightly increased on patient left with mild tenderness bilaterally. CBC reveals moderate anemia (hgb/hct 9.2/27.6) Ferritin 12.7 A: Viral illness Moderate Anemia complicating P: Secondary to restrictions of OB triage, patient was unable to receive IV iron outpatient. Patient would likely benefit from IV iron infusion which we discussed. Recommend 3x/day PO iron. Discussed initiation of daily stool softener to [place] GI side effects of oral iron. Also discussed viral illness symptoms and encouraged Tylenol 1000mg q 8rhs PRN neck pain or fever. Reviewed warning s/sx and when to present. Follow up with primary provider in 1-2 days or sooner PRN. Pt verbalized understanding and agrees to above plan. She denies further questions or concerns at this time.
== END 2023-10-26 20:45 | disposition home or self-care (01) ==
LOC: FBP 18:45 → WFO 18:45
PROVIDERS: ATTEND Obstetrics & Gynecology
DX: O98.513 Other viral diseases complicating pregnancy, third trimester (principal); B34.9 Viral infection, unspecified; Z3A.31 31 weeks gestation of pregnancy; O99.013 Anemia complicating pregnancy, third trimester
CPT/HCPCS: 36415; 59025; 82728; 85025; 99215